=== PATIENT | female | born 1960 | race Caucasian/White ===

== ENCOUNTER → 2020-09-21 13:53 | Outpatient (CLI) | payer OTHER, SELFPAY ==
--- NOTE | 2020-09-21 13:59 | CT_ITS ---
STUDY: CT ABDOMEN AND PELVIS WITH AND WITHOUT CONTRAST-CT UROGRAM REASON FOR EXAM: Female, 59 years old. History of bladder cancer, follow-up RADIATION DOSAGE (If Supplied By Facility): CTDIvol = ( 25.62 ) mGy, DLP = ( 4003.51 ) mGycm TECHNIQUE: Transaxial images were obtained from the dome of the diaphragm to the symphysis pubis without oral contrast. 100 ml of 100 Isovue-300 contrast was administered. Sagittal and coronal images were reconstructed. CT urogram protocol with imaging in the noncontrasted, corticomedullary and delayed phases. Individualized dose optimization techniques were used for this CT. COMPARISON: None. FINDINGS: The visualized lung bases are unremarkable. The visualized portions of the heart are within normal limits. Low-density lesion of the hepatic dome measuring 1.2 cm with peripheral, nodular enhancement compatible with hemangioma. ACR White Paper guidelines (Ayesha, et al. JACR 2017; 14(11):6289-2417.) suggest no follow-up is necessary. No gallstones or gallbladder wall thickening. Common duct is mildly dilated measuring 7.8 mm but no intrahepatic bile duct dilation. Normal spleen. Normal pancreas. Normal bilateral adrenal glands. No urinary tract calcifications. No hydronephrosis. No solid or cystic renal masses. CT urographic images demonstrate excellent opacification of the left ureter but incomplete opacification of the middistal left ureter. No filling defects or ureteral masses. Urinary bladder fills normally. No bladder wall thickening. Normal visualized stomach. Tiny intramural lipoma of the third portion the duodenum. No bowel wall thickening. No colon wall thickening. The appendix is visualized and appears normal. Normal abdominal aorta. Normal inferior vena cava. Normal retroperitoneum. There is absence of the uterus consistent with a prior hysterectomy. No pelvic sidewall adenopathy. Normal abdominal wall. Normal osseous structures. CT/CT Abd/Pelvis W/WO Contrast IMPRESSION: 1. No solid renal masses or bladder wall thickening. No hydronephrosis. Incomplete opacification of the left ureter on urographic phase limits exam. 2. Borderline distention of the extrahepatic common duct but no intrahepatic bile duct dilation. Recommend correlating with biliary laboratory values and clinical information/exam. Electronically Signed: Quintin Granda MD ([place]) at 18:27 EDT , Service support ,
[2020-09-21 14:15] LABS: CREATININE FINGERSTICK 1.1 mg/dL (0.55-1.02)
== END ==
LOC: CT 13:57
PROVIDERS: PCP Student in an Organized Health Care Education/Training Program; Referring Provider Urology; Visit Provider Urology
DX: N21.0 Calculus in bladder (principal); Z85.51 Personal history of malignant neoplasm of bladder
CPT/HCPCS: 74178; Q9967

== ENCOUNTER 2021-09-27 06:56 | Day surgery (SDC) | payer OTHER, SELFPAY ==
[2021-09-27 07:26] VITALS: BP 160/91; PULSE 71; RESP 16; TEMP 36.2; O2SAT 100; BMI 35.5
[2021-09-27] MEDS: Lactated Ringers 1,000 ML 15 ML IV ×2 (07:29→09:45)
--- NOTE | 2021-09-27 08:20 | DCINST_ITS ---
Discharge Instructions Diet Discharge Diet: No restrictions Activity Discharge Activity: No Restrictions Dressing / Incision Call your doctor if you observe: Fever of 101 or Higher, Inability to urinate, Inability to have a bowel movement and - (severe left flank pain, nausea or vomiting) Follow Up Care Please Follow Up With: Michelle Delatorre MD When: Call for appointment to be seen next week Test Results: Test results from this visit will be discussed in further detail at your follow- up appointment, if applicable. Discharge Plan Admission Attending Provider: Michelle Delatorre Primary Care Provider: Daniel Verma Discharge Orders/Prescriptions Prescriptions: New ondansetron HCl [ondansetron HCl] 8 mg tablet 8 mg PO Q8H PRN PRN (Reason: Nausea) 7 Days Qty: 20 0RF oxycodone-acetaminophen [Percocet] 5-325 mg tablet 1 tab PO Q8H PRN (Reason: pain) 3 Days Qty: 10 0RF cephalexin [cephalexin] 500 mg capsule 500 mg PO Q12 3 Days Qty: 6 0RF phenazopyridine [Pyridium] 200 mg tablet 200 mg PO TID PRN PRN (Reason: Bladder Spasms) 7 Days Qty: 30 0RF Continued latanoprost 0.005 % drops 1 drp EACH EYE DAILY Label Comments: INSERT 1 (ONE) DROP IN BOTH EYES EVERY EVENING albuterol sulfate 0.63 mg/3 mL Solution For Nebulization 0.63 mg INHALATION Q4H PRN (Reason: sob) levothyroxine 137 mcg tablet 137 mcg PO DAILY Label Comments: TAKE 1 TABLET BY MOUTH EVERY DAY venlafaxine 75 mg capsule,extended release 24hr 75 mg PO BID Label Comments: TAKE 1 CAPSULE BY MOUTH THREE TIMES DAILY valsartan-hydrochlorothiazide 160-12.5 mg tablet 1 tab PO DAILY Label Comments: TAKE 1 TABLET BY MOUTH EVERY DAY atenolol 50 mg tablet 50 mg PO DAILY ezetimibe 10 mg tablet 10 mg PO DAILY Label Comments: TAKE 1 TABLET BY MOUTH EVERY DAY fenofibrate 54 mg tablet 67 mg PO DAILY Referrals / Follow Up: Daniel Verma MD [Primary Care Provider] - Disposition Disposition (needs filled in before D/C Order can be placed): Home, Self Care
--- NOTE | 2021-09-27 08:25 | PCM.OPRPT ---
Report of Operation Date of Procedure: 09/27/21 Pre-Operative Diagnosis: Bladder mass small Post-Operative Diagnosis: Same Surgery/Procedure Performed:: Cystoscopy, bladder biopsy with fulguration, left retrograde pyelogram, left ureteroscopy, left renal pelvic washings, laser of a left renal pelvic polyp. Surgeon: Michelle Delatorre Type of Anesthesia: General Specimen's removed: Bladder biopsy (several) , renal pelvic washings for cytology Description of Procedure: The patient is a 60-year-old female with a history of bladder cancer who had findings of abnormal mucosa on her cystoscopy in the office. She now presents for further evaluation and management. Informed consent was obtained. The patient was taken to the operating room and placed on the operating room table. Anesthesia monitored the head, neck, airway, IV access and vital signs throughout the case. Once anesthesia was appropriate ministered the patient was placed into dorsolithotomy position was prepped and draped in usual sterile fashion. The cystoscope was inserted through the urethra under direct visualization into the urinary bladder. The same areas of concern were identified as seen in the office adjacent to the left ureteral orifice. At this time an 8 [place]ian cone-tip catheter was used to gently cannulate the left ureteral orifice and contrast was injected in retrograde fashion under fluoroscopic visualization. The entire left ureter and upper collecting system were clean without evidence of filling defect or irregular mucosal wall. At this time a 0.035 Glidewire was inserted followed by a second 1 for safety. The flexible ureteroscope was inserted over one of the Glidewire all the way to the renal pelvis. There is a small 1 to 2 mm polyp in the upper pole area of the renal pelvis. An attempt was made at biopsy of this polyp which were unsuccessful. At this time washings were sent for cytology from the renal pelvis obtained through the ureteroscope. The 200 ?m laser fiber was then used to obliterate the polyp and adjacent mucosa. The remaining mucosa of the entire renal pelvis, all calyces and the left ureter were found to be without mucosal abnormality visualized. At this time the biopsy forceps were used to remove multiple specimens of the irregular mucosa adjacent to the ureter. These all appear to be very superficial. The area was then fulgurated for tissue treatment and hemostasis. The wire was dislodged during this time. I began to insert a left ureteral stent, however the left ureter had several strong clear ureteral jets of urine. I had difficulty reinserting the Glidewire and due to the jets of clear urine, the decision was made not to cause further damage to the left distal ureter. The bladder was then emptied and the case was terminated. The patient was awakened and taken to the recovery room in good condition. There were no complications during this procedure. Grafts/Implants Used: None Complications None Admit VTE Documentation VTE Present on Admission: Yes VTE Mechan Device Prophylaxis: SCD's VTE Pharm Prophylaxis ordered?: No Reason prophylaxis not ordered:: Treatment Not Indicated
[2021-09-27] MEDS: Cefazolin 2 GM in 0.9% Normal Saline 100 ML IV (08:30)
--- NOTE | 2021-09-27 08:30 | BLA_PTH ---
PATIENT: PILAR JARAMILLO LOC: [facility] – [place] U#:[id number] AGE/SX: 60/F ROOM: RE09/27/[address]: Dr. Michelle Delatorre MD : 1960 BED: DIS: 09/27/2021 SPEC #: [id number] RECD: 09/27/21 10:59 STATUS: MICHAEL WOOD #: [id number] TERESA: 09/27/21 08:[address]: Michelle Delatorre DEPT: SURGICAL PATHOLOGY RECD BY: Evelyn Kwok ENTERED: 09/27/21 11:29 SP TYPE: BLADDER BX OTHR DR: Dr. Daniel Verma MD Tissues: Urinary bladder, NOS Procedures: Surgery Specimen Level IV HEADER OPERATION: Cysto, left ureteroscopy, retro, bladder biopsy with fulguration PRE-OP DIAGNOSIS: History of bladder cancer, bladder mass TISSUE SUBMITTED: Bladder biopsy MICROSCOPIC DIAGNOSIS Bladder, biopsy: Noninvasive papillary urothelial carcinoma. See comment. KEVIN:ana 09/28/2021 COMMENT The tumor shows low-grade (1/3) lamina propria invasion and lymphvascular invasion is not seen. Muscularis propria is not present in the specimen. Please see additional cytology specimen [id number]. Case has been reviewed in consultation with Dr. Bardales who concurs with the above diagnosis. IDC:AM MICROSCOPIC DESCRIPTION Slides are reviewed. GROSS DESCRIPTION Received in fixative is one container labeled with the patient's name and designated bladder biopsy. The specimen consists of multiple fragments of correa soft tissue that in aggregate measure 0.5 x 0.1 x 0.1 cm. The specimen is totally submitted in one cassette. / KEVIN:ana 09/27/2021 TC:0 CPT: 59849
--- NOTE | 2021-09-27 09:11 | FLU_PTH ---
PATIENT: PILAR JARAMILLO [place] [facility] [place][id number] AGE/SX: 60/F ROOM: RE09/27/[address]: Dr. Michelle Delatorre MD : 1960 BED: DIS: 09/27/2021 SPEC #: [id number] RECD: 09/27/21 10:39 STATUS: MICHAEL REMyrtle #: [id number] TERESA: 09/27/21 09:[address]: Michelle Delatorre DEPT: CYTOLOGY RECD BY: Evelyn Kwok ENTERED: 09/27/21 10:42 SP TYPE: Fluid OTHR DR: Dr. Daniel Verma MD Tissues: Pelvis, NOS Procedures: Special Stain Group II Surgery Specimen Level IV Cytospin Fluid HEADER OPERATION: Cysto, left ureteroscopy, retro, bladder biopsy with fulguration PRE-OP DIAGNOSIS: History of bladder cancer, bladder mass TISSUE SUBMITTED: Left renal pelvis washing for cytology DIAGNOSIS CYTOLOGY Left renal washing for cytology (cytospin and cell block): Negative for malignancy. See comment. SJ:ana 10/08/2021 COMMENT The specimen is sent to [facility] for expert opinion, reviewed by Dr. Kauffman and the above diagnosis is rendered. The complete report is viewable in the patient's EMR. Please make reference to additional specimen ([id number]), bladder, biopsy with diagnosis of papillary urothelial carcinoma. Correlation with clinical findings and appropriate follow up are necessary. Case has been reviewed in consultation with Dr. Bardales who concurs with the above diagnosis. IDC:AM CYTOLOGY STUDY Slides are reviewed. CYTOLOGY GROSS Received is 5 ml of light pink cloudy fluid labeled with the patient's name and and designated per the requisition as left renal pelvic washing. Submitted for cytology preparation including cell block. / ana 09/27/2021 TC:5 CPT: 17431, 61888
[2021-09-27 09:48] VITALS: BP 160/91; BP 165/81; PULSE 79; RESP 16; TEMP 36.1; O2SAT 90
[2021-09-27 09:57] LABS: Cytology, Body Fluid / CSF SEE PATHOLOGY REPORT
[2021-09-27 10:00] VITALS: BP 127/75; BP 160/91; PULSE 77; RESP 16; O2SAT 95
[2021-09-27 10:06] VITALS: BP 132/70; BP 160/91; PULSE 76; RESP 16; TEMP 36.2; O2SAT 98
[2021-09-27 10:50] VITALS: BP 149/75; BP 160/91; PULSE 76; RESP 16; TEMP 36.1; O2SAT 93
== END 2021-09-27 10:57 | disposition home or self-care (01) ==
LOC: SDC 06:58 → AC 06:59
PROVIDERS: PCP Student in an Organized Health Care Education/Training Program; Visit Provider Urology
PROC: 0TJ98ZZ Inspection of Ureter, Via Natural or Artificial Opening Endoscopic (ICD-10-PCS; CPT 52352; principal; 2021-09-27 08:20)
DX: C67.9 Malignant neoplasm of bladder, unspecified (principal); I10 Essential (primary) hypertension; I51.9 Heart disease, unspecified; E03.9 Hypothyroidism, unspecified; Z87.891 Personal history of nicotine dependence; Z79.899 Other long term (current) drug therapy; Z85.51 Personal history of malignant neoplasm of bladder; N95.2 Postmenopausal atrophic vaginitis; R39.15 Urgency of urination; Z79.890 Hormone replacement therapy; M19.90 Unspecified osteoarthritis, unspecified site; Z86.16 Personal history of COVID-19
CPT/HCPCS: 52234; 00912; 76000; 88108; 88305; 88313; J7120; J2405